=== PATIENT | male | born 1990 | race Caucasian/White ===

== ENCOUNTER 2017-02-19 13:06 | Outpatient (CLI) | payer OTHER ==
[2017-02-19] MEDS ORDERED: LIDOCAINE 1% 50 ML MDV SUBQ ONE (15:00)
[2017-02-19] MEDS ORDERED: IOTHALAMATE MEGLUMINE 50 ML VIAL IVP ONE (15:00)
[2017-02-19] MEDS ORDERED: BUFFERED LIDOCAINE 10 ML SYRINGE IU ONE (15:00)
[2017-02-19] MEDS ORDERED: GADOPENTETATE DIMEGLUMINE 5 ML VIAL IVP ONE (15:00)
== END 2017-02-19 13:07 | disposition home or self-care (01) ==
DX: S43.431A Superior glenoid labrum lesion of right shoulder, initial encounter (principal); S43.491A Other sprain of right shoulder joint, initial encounter; M67.911 Unspecified disorder of synovium and tendon, right shoulder
CPT/HCPCS: 23350; 73222; 77002; Q9961